=== PATIENT | female | born 1960 | race Caucasian/White ===

== ENCOUNTER 2019-05-01 17:16 | Emergency (ER) | payer OTHER, BC, SELFPAY ==
[2019-05-01 17:28] VITALS: BP 140/84; PULSE 118; RESP 21; TEMP 37.4; O2SAT 98
--- NOTE | 2019-05-01 17:51 | ED.FEMALEGU ---
HPI - Female Genitourinary General Chief complaint: Urogenital-Female Stated complaint: pos bladder infection Time Seen by Provider: 05/01/19 17:51 Source: patient Mode of arrival: ambulatory Limitations: no limitations History of Present Illness HPI Narrative: Shana Jean Baptiste is a 58 yo female with a PMH of HTN with abd pain and possible urinary hesitancy x 2 days. Patient states she is very stressed out and his father just mother is dying of cancer, [id number] and son live with them but son is very ill with dextrorotation of heart and medical study reticulitis. She has a high stress job at a [employer]; no longer has a primary care doc as his nurse practitioner just left. Related Data Home Medications Medication Instructions Recorded Confirmed estradiol 0.5 mg PO DAILY 05/01/19 05/01/19 metoprolol succinate 100 mg PO DAILY 05/01/19 05/01/19 Allergies Allergy/AdvReac Type Severity Reaction Status Date / Time levofloxacin Allergy Unknown Itching Verified 05/01/19 17:36 Review of Systems Review of Systems: Narrative: CONSTITUTIONAL: Denies fever, chills, sweats. EYES: Denies visual changes, redness, discharge. ENT: Denies rhinorrhea, congestion, sore throat, otalgia. CARDIOVASCULAR: Denies chest pain, palpitations, edema. RESPIRATORY: Denies dyspnea, wheezing, cough GASTROINTESTINAL: has abdominal pain, no nausea, vomiting, no diarrhea. GENITOURINARY: Denies dysuria, hematuria, abnormal discharge SKIN: Denies rash or itching. NEUROLOGIC: Denies numbness, or focal weakness. PSYCHIATRIC: Denies anxiety or depression. [facility] Family History Family History Father Hypertension Family history of malignant neoplasm of kidney Mother Hypertension Other Cerebrovascular accident Diabetes mellitus Family history of allergic disorder Family history of cardiovascular disease Family history of coronary artery disease Family history of kidney disease Family history of malignant neoplasm Social History Social History Smoking status: Former smoker Second hand tobacco smoke exposure: Yes Smoking end date: 03/09/16 Alcohol intake: never Comments At time of signature, I agree with nursing past medical, surgical, social and family history. There is no relevant family history pertinent to the presenting complaint. Exam Narrative: Exam Narrative: GENERAL: This is a well-nourished, well-developed patient, in mild distress. HEAD: normocephalic, atraumatic. EYES: PERRL. Sclera clear/white. Vision is grossly intact. EARS: External ears normal, Hearing grossly intact. NOSE: External nose normal with no obvious nasal discharge, nares without redness, no rhinorrhea. THROAT: Mucous membranes moist, NECK: Neck supple, non-tender CARDIOVASCULAR: Regular rate and rhythm without murmurs, gallops, or rubs. RESPIRATORY: Clear to auscultation. Breath sounds equal bilaterally. No wheezes, rales, or rhonchi. GASTROINTESTINAL: Abdomen soft, non-tender, nondistended. Bowel sounds are active. No hepato-splenomegaly, no tenderness on exam SKIN: warm, intact with no suspicious lesions or rash, good texture and turgor. NEURO: awake, alert, and oriented to person, place and time. There were no obvious focal neurologic abnormalities. Steady gait EXTREMITIES: Normal range of motion. No edema. BACK: Nontender without deformity or crepitance. No flank tenderness. Course Course Emergency Course: UA dip negative sent for culture During discussion patient states that she has been constipated and has a history of IBS with constipation . discussed handling stress starting on Colace and hydration. Patient has abdominal pain going forward, pain worsens, or fever worsens, she needs to get blood work done or go to the emergency room Vital Signs Vital signs: Vital Signs Temperature 99.3 F 05/01/19 17:28 Pulse Rat
== END 2019-05-01 18:26 | disposition home or self-care (01) ==
PROVIDERS: Emergency Provider Nurse Practitioner
DX: F43.9 Reaction to severe stress, unspecified (principal); K58.1 Irritable bowel syndrome with constipation; Z87.891 Personal history of nicotine dependence; I10 Essential (primary) hypertension
CPT/HCPCS: 81003; 87086; 99213; G0463

== ENCOUNTER 2019-06-03 21:31 | Emergency (ER) | payer OTHER, BC, SELFPAY ==
--- NOTE | ~2019-06-03 | CT_ITS ---
EXAMINATION: CT abdomen pelvis wo con DATE: 06/03/2019 23:28 INDICATION: Right flank pain. TECHNIQUE: Computed tomography (CT) of the abdomen and pelvis was performed without intravenous contr ast. Automated exposure control and iterative reconstruction technique were employed. The dose-length product was 330.55 mGy-cm. COMPARISON: None. FINDINGS: The visualized portions of the lung bases demonstrate minimal atelectasis. No pleural effus ion. The heart size is normal. No pericardial effusion. The liver, gallbladder, spleen, pancreas, and adrenal glands are normal. There is mild right hydronephrosis and hydroureter. There is a 14 mm cyst in left kidney. There is a 4 mm stone in left kidney. There are no dilated loops of bowel. The appen dusty is normal. There are no pathologically enlarged lymph nodes. There is no free intraperitoneal flu id. There is moderate thoracic spondylosis and mild lumbar spondylosis. IMPRESSION: 1. Mild right hydronephrosis and hydroureter. 2. 4 mm nonobstructing left kidney stone. Reviewed, dictated and finalized at location A.
[2019-06-03 22:03] VITALS: BP 143/88; PULSE 92; RESP 16; TEMP 36.7; O2SAT 99
--- NOTE | 2019-06-03 23:12 | ED.FEMALEGU ---
HPI - Female Genitourinary General Chief complaint: Urogenital-Female Stated complaint: R flank pain Time Seen by Provider: 06/03/19 22:53 Source: patient Mode of arrival: ambulatory Limitations: no limitations History of Present Illness HPI Narrative: Patient is a 58-year-old female who presents to the emergency department with complaint of right flank pain. Patient reports onset of symptoms a few weeks ago. Patient states she was seen at urgent care and had urine checked. Patient states she was told she did not have an infection but could potentially have a kidney stone. Patient symptoms subsided and she had been doing very well. Patient had recurrence of symptoms at approximately 5 PM this evening while she was working from home. Patient to to acetaminophen tablets when the pain started. Pain was located in the right flank with radiation into the groin. Patient had some nausea and diaphoresis associated with her symptoms. MD elicited complaint: flank pain Pertinent past history: other (Kidney stones) Location of symptoms: flank (Right) Female Urogenital Radiation: Suprapubic Severity scale (1-10): 10 Consistency: improved (Has started to improve since arriving in the ED) Treatment prior to arrival: OTC urinary analgesics Related Data Home Medications Medication Instructions Recorded Confirmed estradiol 0.5 mg PO DAILY 05/01/19 05/01/19 metoprolol succinate 100 mg PO DAILY 05/01/19 05/01/19 Allergies Allergy/AdvReac Type Severity Reaction Status Date / Time levofloxacin Allergy Unknown Itching Verified 05/01/19 17:36 Review of Systems Review of Systems: All systems reviewed & are unremarkable except as noted in HPI and below Constitutional: Constitutional: Denies fever(s) Respiratory: Respiratory: Denies cough Gastrointestinal: Gastrointestinal: Reports abdominal pain and Reports nausea Genitourinary: Genitourinary: Reports flank pain PMFSH Past Medical History Medical History (Updated 06/04/19 @ 00:22 by Nancy Sosa MD) Fibromyalgia HTN (hypertension) IBS (irritable bowel syndrome) Kidney stones Surgical History Surgical History (Updated 06/03/19 @ 23:25 by Nancy Sosa MD) History of section History of colonoscopy History of cystoscopy History of lithotripsy History of total hysterectomy with bilateral salpingo-oophorectomy (BSO) History of ureter stent Social History Social History Smoking status: Former smoker Second hand tobacco smoke exposure: Yes Smoking end date: 03/09/16 Alcohol intake: never Exam Const: General: cooperative, no acute distress and alert Nutritional Appearance: well nourished Orientation/consciousness: patient oriented x3 Limitations: no limitations HENMT: Mouth: Yes lip normal and Yes moist mucous membranes Resp: Effort & Inspection: normal respiratory effort Auscultation: clear to auscultation bilaterally Cardio: Rate: regular rate Rhythm: regular rhythm GI: GI Palp: Yes Soft to palpation and No Tenderness to palpation present (GI) Auscultation: normal bowel sounds Skin: General skin exam: normal color Neuro: General: patient oriented x3 Cognition (Neuro): normal cognition Speech: normal speech Extrem: General: normal to inspection, full ROM and no clubbing, cyanosis or edema Psych: Mental Status: mental status grossly normal Affect: normal affect Attitude: cooperative Course Course Emergency Course: Patient with improvement in her pain prior to my evaluation. Patient noted by nurse to be in severe pain and very uncomfortable in appearance on arrival, but patient greatly improved and very comfortable during my evaluation. CT scan consistent with what appears to be a passed right ureteral stone. Patient states after going to the bathroom a second time here in the emergency department and urinating she had significant improvement in her pain. Suspect patient
[2019-06-03] MEDS: ONDANSETRON INJ 4 MG/2 ML VIAL IV PUSH (23:13)
[2019-06-03] MEDS: KETOROLAC 30 MG/ML VIAL (*BKC) IV PUSH (23:13)
[2019-06-03 23:43] LABS: Basophils Absolute Auto 0.1 K/mm3 (0.0-0.1); Basophils Percent Auto 0.5 % (0.2-1.2); Eosinophils Percent Auto 0.2 % (0-4.4); Hematocrit 38.6 % (37.0-47.0); Immature Granulocyte Absolute 0.04 K/mm3 (0.00-0.031); Immature Granulocyte Percent A 0.3 % (0-0.5); Lymphocytes Absolute Auto 2.15 K/mm3 (0.9-3.2); Lymphocytes Percent Auto 16.8 % (18.3-44.2); Mean Corpuscular HGB Conc 33.7 g/dl (32-36); Mean Corpuscular Hemoglobin 28.1 pg (26-34); Mean Corpuscular Volume 83.5 fl (80-100); Mean Platelet Volume 9.6 fl (7.4-10.4); Monocytes Absolute Auto 0.7 K/mm3 (0.1-0.6); Monocytes Percent Auto 5.1 % (2.6-8.5); Neutrophils Absolute Auto 9.9 K/mm3 (1.3-6.7); Neutrophils Percent Auto 77.1 % (45.5-73.1); Platelet Count Result 477 k/mm3 (150-375); Red Blood Count 4.62 M/mm3 (4.2-5.4); Red Cell Distribution Width 12.8 % (11.5-14.5); White Blood Count 12.8 K/mm3 (4.5-10.0)
[2019-06-03 23:44] VITALS: BP 144/87; PULSE 90; RESP 15; O2SAT 100
[2019-06-03 23:47] LABS: Blood Urea Nitrogen 16 mg/dL (7-17); Calcium 9.6 mg/dL (8.4-10.2); Carbon Dioxide 18 mmol/L (22-30); Chloride 107 mmol/L (98-107); Estimated Glomerular Filt Rate > 60; Glucose 122 mg/dL (65-105); Potassium 4.1 mmol/L (3.4-5.0); Sodium 138 mmol/L (137-145)
[2019-06-03 23:48] LABS: Add Urine Microscopic? YES; Appearance Urine Cloudy (Clear); Bilirubin Urine Negative (Negative); Blood Urine 1+ (Negative); Glucose Urine UA Negative (Negative); Ketones Urine Negative (Negative); Leukocyte Esterase Ur Negative LEU/UL (Negative); Nitrate Urine Negative (Negative); Protein Urine Negative (Negative); Specific Grav Ur 1.017 (1.001-1.035); Urobilinogen Urine Negative mg/dL (<2.0)
[2019-06-03 23:57] LABS: Color Urine Amber (Yellow)
[2019-06-04 00:57] VITALS: BP 135/76; PULSE 85; RESP 14; O2SAT 98
== END 2019-06-04 00:59 | disposition home or self-care (01) ==
PROVIDERS: Emergency Provider Emergency Medicine
DX: N23 Unspecified renal colic (principal); M79.7 Fibromyalgia; I10 Essential (primary) hypertension; K58.9 Irritable bowel syndrome, unspecified; Z87.442 Personal history of urinary calculi; Z87.891 Personal history of nicotine dependence; N20.0 Calculus of kidney; N13.30 Unspecified hydronephrosis
CPT/HCPCS: 36415; 74176; 80048; 81001; 81025; 85025; 96374; 96375; 99284; J1885; J2405

== ENCOUNTER 2020-01-04 16:17 | Outpatient (CLI) | payer OTHER, BC, SELFPAY ==
--- NOTE | ~2020-01-04 | MM_ITS ---
EXAMINATION: MM screening [facility] BI w nickolas HISTORY: Screening mammogram TECHNIQUE: Craniocaudal and mediolateral oblique 3-D tomosynthesis images were obtained and synthetic 2-D images were generated. CAD analysis was submitted and interpreted. COMPARISON: 05/15/2018, 09/07/2015, 10/14/2008 BREAST PARENCHYMAL COMPOSITION: There are scattered areas of fibroglandular density. FINDINGS: There is no evidence of suspicious mass, calcification, or architectural distortion to sugg est malignancy in either breast. There has been no suspicious interval change. IMPRESSION: 1. No mammographic evidence of malignancy. 2. Recommend routine screening mammography in one year. BI-RADS Category 1: Negative Reviewed, dictated and finalized at location A.
== END 2020-01-04 16:18 | disposition home or self-care (01) ==
LOC: ANHIMG 16:21
PROVIDERS: PCP Family Medicine; Visit Provider Obstetrics & Gynecology
DX: Z12.31 Encounter for screening mammogram for malignant neoplasm of breast (principal)
CPT/HCPCS: 77063; 77067

== ENCOUNTER 2020-09-01 11:12 | Outpatient (CLI) | payer OTHER, BC, SELFPAY ==
[2020-09-01 11:40] LABS: Basophils Percent Auto 0.6 % (0.2-1.2); Eosinophils Absolute Auto 0.1 K/mm3 (0-0.3); Eosinophils Percent Auto 1.9 % (0-4.4); Hematocrit 43.5 % (37.0-47.0); Hemoglobin 14.2 g/dL (12.0-15.0); Immature Granulocyte Absolute 0.01 K/mm3 (0.00-0.031); Immature Granulocyte Percent A 0.1 % (0-0.5); Lymphocytes Absolute Auto 3.32 K/mm3 (0.9-3.2); Lymphocytes Percent Auto 48.7 % (18.3-44.2); Mean Corpuscular HGB Conc 32.6 g/dl (32-36); Mean Corpuscular Hemoglobin 28.2 pg (26-34); Mean Corpuscular Volume 86.3 fl (80-100); Mean Platelet Volume 8.9 fl (7.4-10.4); Monocytes Absolute Auto 0.5 K/mm3 (0.1-0.6); Monocytes Percent Auto 6.7 % (2.6-8.5); Neutrophils Absolute Auto 2.9 K/mm3 (1.3-6.7); Platelet Count Result 425 k/mm3 (150-375); Red Blood Count 5.04 M/mm3 (4.2-5.4); Red Cell Distribution Width 13.2 % (11.5-14.5); White Blood Count 6.8 K/mm3 (4.5-10.0)
[2020-09-01 11:55] LABS: Alanine Aminotransferase 53 U/L (4-35); Albumin Level 4.5 g/dL (3.5-5.1); Alkaline Phosphatase 75 U/L (38-126); Anion Gap 9 mmol/L (8-16); Aspartate Amino Transferase 42 U/L (14-36); Bilirubin,Total 0.4 mg/dL (0.2-1.3); Blood Urea Nitrogen 13 mg/dL (7-17); Calcium 9.4 mg/dL (8.4-10.2); Carbon Dioxide 27 mmol/L (22-30); Chloride 106 mmol/L (98-107); Cholesterol 188 mg/dL (0-200); Estimated Glomerular Filt Rate > 60; Glucose 93 mg/dL (65-105); HDL Direct 69 mg/dL; Potassium 4.1 mmol/L (3.4-5.0); Sodium 142 mmol/L (137-145); Triglycerides 128 mg/dL (<150)
[2020-09-01 12:05] LABS: Hemoglobin A1C 5.8 % (<5.7)
[2020-09-01 12:06] LABS: LDL Cholesterol Direct 75 mg/dL
[2020-09-01 12:25] LABS: Microalbumin Urine Random 17.1 mg/L (0-16.7); Total Triiodothyronine (T3) 1.52 NG/ML (0.97-1.69)
[2020-09-01 12:27] LABS: Creatinine Urine 323.9 mg/dL; MALB Creatinine Ratio 5.3 mg/g (0-30)
[2020-09-01 12:39] LABS: Free T4 Free Thyroxine 1.04 ng/mL (0.78-2.19); Vitamin D 25 Hydroxy 26.3 ng/mL
== END 2020-09-01 11:13 | disposition home or self-care (01) ==
PROVIDERS: PCP Family Medicine; Visit Provider Nurse Practitioner Family
DX: R00.2 Palpitations (principal); R55 Syncope and collapse; I10 Essential (primary) hypertension; E55.9 Vitamin D deficiency, unspecified; R53.83 Other fatigue; R73.01 Impaired fasting glucose; Z13.220 Encounter for screening for lipoid disorders; R00.0 Tachycardia, unspecified
CPT/HCPCS: 36415; 80053; 80061; 82043; 82306; 83036; 84439; 84443; 84480; 85025

== ENCOUNTER 2020-11-20 21:16 | Emergency (ER) | payer OTHER, BC, SELFPAY ==
--- NOTE | ~2020-11-20 | XR_ITS ---
EXAMINATION: XR abdomen/kub 1V INDICATION: Left ureteral stone TECHNIQUE: Supine views of the abdomen were obtained on 2 radiographs. COMPARISON: CT, 11/20/2020 FINDINGS: Contrast from CT examination opacifies the urinary tract. The known left ureteral stone is not definitely identified. There is mild left hydronephrosis. There are phleboliths of the pelvis. Th e bowel gas pattern is normal. IMPRESSION: 1. Mild left hydronephrosis. Known right ureteral stone not definitely seen. Reviewed, dictated and finalized at location A.
--- NOTE | ~2020-11-20 | CT_ITS ---
EXAMINATION: CT abdomen pelvis w con DATE: 11/20/2020 23:25 INDICATION: Abdominal pain, bloating, gas. Back pain. Hematuria. History of kidney stones. TECHNIQUE: Computed tomography (CT) of the abdomen and pelvis was performed with 100 cc Omnipaque 350 intravenous contrast. Automated exposure control and iterative reconstruction technique were employe d. Exam dose: 617.11 mGy-cm total exam DLP. COMPARISON: 06/03/2019 CT abdomen pelvis noncontrast examination FINDINGS: The lung bases are clear. Normal heart size. No pericardial or pleural effusion. Approximately 13.505 4.5 mm left hepatic cysts. The liver, gallbladder, bile ducts, spleen, pancreas, pancreatic duct, and adrenal glands are otherwise unremarkable. 5 mm probable lower pole right renal cyst. 2.4 cm lower pole left renal cyst. 6.5 mm probable lower pole left renal cyst. There is mild left hydroureteronephrosis secondary to a 3.7 x 4.7 mm mm calculus of the left ureter a t the S1 level. No other urinary tract calculus is noted. The urinary bladder is unremarkable. Status post hysterectomy. Normal caliber of the abdominal aorta. No intraperitoneal or retroperitoneal or pelvic mass lesion or adenopathy or ascites. No evidence of appendicitis. There is diverticulosis of the colon; no CT evidence of diverticulitis. No bowel obstruction, bowel wall thickening, pneumatosis or intraperitoneal free air is detected. IMPRESSION: 3.7 x 4.7 mm obstructing left ureteral calculus at the S1 level, with mild proximal left hydroureteronephrosis Bilateral renal cysts Left hepatic cysts Diverticulosis of the colon; no CT evidence of diverticulitis Status post hysterectomy Reviewed, dictated and finalized at Location A. Reviewed, dictated and finalized at location A. IMPRESSION: 3.7 x 4.7 mm obstructing left ureteral calculus at the S1 level, w ith mild proximal left hydroureteronephrosis Bilateral renal cysts Left hepatic cysts Diverticulosis of the colon; no CT evidence of diverticulitis Status post hysterectomy
[2020-11-20 21:30] VITALS: BP 148/94; PULSE 114; RESP 18; TEMP 36.4; O2SAT 99
[2020-11-20 21:53] LABS: Basophils Absolute Auto 0.1 K/mm3 (0.0-0.1); Basophils Percent Auto 0.6 % (0.2-1.2); Eosinophils Absolute Auto 0.1 K/mm3 (0-0.3); Eosinophils Percent Auto 1.3 % (0-4.4); Hematocrit 42.8 % (37.0-47.0); Hemoglobin 14.3 g/dL (12.0-15.0); Immature Granulocyte Absolute 0.02 K/mm3 (0.00-0.031); Immature Granulocyte Percent A 0.2 % (0-0.5); Lymphocytes Absolute Auto 4.17 K/mm3 (0.9-3.2); Lymphocytes Percent Auto 41.8 % (18.3-44.2); Mean Corpuscular HGB Conc 33.4 g/dl (32-36); Mean Corpuscular Hemoglobin 28.6 pg (26-34); Mean Corpuscular Volume 85.6 fl (80-100); Mean Platelet Volume 8.9 fl (7.4-10.4); Monocytes Absolute Auto 0.8 K/mm3 (0.1-0.6); Monocytes Percent Auto 7.5 % (2.6-8.5); Neutrophils Absolute Auto 4.8 K/mm3 (1.3-6.7); Neutrophils Percent Auto 48.6 % (45.5-73.1); Platelet Count Result 449 k/mm3 (150-375); Red Cell Distribution Width 12.9 % (11.5-14.5)
[2020-11-20 22:04] LABS: Alanine Aminotransferase 38 U/L (4-35); Albumin Level 4.6 g/dL (3.5-5.1); Alkaline Phosphatase 92 U/L (38-126); Anion Gap 12 mmol/L (8-16); Aspartate Amino Transferase 29 U/L (14-36); Bilirubin,Total 0.3 mg/dL (0.2-1.3); Blood Urea Nitrogen 10 mg/dL (7-17); Calcium 9.2 mg/dL (8.4-10.2); Carbon Dioxide 22 mmol/L (22-30); Chloride 106 mmol/L (98-107); Estimated CRCL calculation 76 ml/min; Estimated Glomerular Filt Rate > 60; Glucose 116 mg/dL (65-110); Lipase 136 U/L (23-300); Potassium 3.4 mmol/L (3.4-5.0); Sodium 140 mmol/L (137-145)
[2020-11-20 22:05] LABS: Add Urine Microscopic? YES; Appearance Urine Cloudy (Clear); Bacteria Urine Trace /hpf; Bilirubin Urine Negative (Negative); Blood Urine 3+ (Negative); Color Urine Red (Yellow); Glucose Urine UA 1+ mg/dL (Negative); Ketones Urine Negative (Negative); Leukocyte Esterase Ur Negative LEU/UL (Negative); Mucus Urine Moderate /lpf; Nitrate Urine Negative (Negative); Protein Urine 2+ mg/dL (Negative); RBC Urine >75 /hpf (0-2); Specific Grav Ur 1.018 (1.001-1.035); Squamous Epithelial Cell Urine Many /hpf (Few); Urobilinogen Urine Negative mg/dL (<2.0)
--- NOTE | 2020-11-20 23:01 | ED.GENADULT ---
HPI - General Adult General Chief complaint: Abdominal Pain Stated complaint: hematuria, bodyaches Time Seen by Provider: 11/20/20 22:47 Source: patient History of Present Illness HPI narrative: Patient is a 59 y/o female complaining of bilateral back pain starting 5 days ago. She describes her pain as aching and rates it as 9/10. She took Tylenol, which helps with her pain slightly. Her pain radiates to right lower abdomen. She has no vomiting or diarrhea. She has some blood in urine. Related Data Home Medications Medication Instructions Recorded Confirmed estradiol 0.5 mg PO DAILY 05/01/19 05/01/19 metoprolol succinate 100 mg PO DAILY 05/01/19 05/01/19 sennosides-docusate sodium PO 11/20/20 [Stimulant Laxative Plus] Allergies Allergy/AdvReac Type Severity Reaction Status Date / Time levofloxacin Allergy Unknown Itching Verified 11/20/20 22:52 Review of Systems Constitutional: Constitutional: Denies chills, Denies fever(s), Denies headache(s) and Denies weakness Eyes: Eyes: Denies blurry vision ENT: Denies headache(s) and Denies neck pain Cardiovascular: Cardiovascular: Denies chest pain and Denies dyspnea Respiratory: Respiratory: Denies cough and Denies dyspnea Gastrointestinal: Gastrointestinal: Reports abdominal pain, Denies diarrhea, Denies nausea and Denies vomiting Genitourinary: Genitourinary: Reports hematuria and Denies dysuria Musculoskeletal: Musculoskeletal: Reports back pain and Denies neck pain Neurologic: Denies headache(s) and Denies weakness [facility] Past Medical History Medical History Fibromyalgia HTN (hypertension) IBS (irritable bowel syndrome) Kidney stones Surgical History Surgical History History of section History of colonoscopy History of cystoscopy History of lithotripsy History of total hysterectomy with bilateral salpingo-oophorectomy (BSO) History of ureter stent Family History Family History Father Hypertension Family history of malignant neoplasm of kidney Mother Hypertension Other Cerebrovascular accident Diabetes mellitus Family history of allergic disorder Family history of cardiovascular disease Family history of coronary artery disease Family history of kidney disease Family history of malignant neoplasm Social History Social History Smoking status: Former smoker Second hand tobacco smoke exposure: Yes Smoking end date: 03/09/16 Alcohol intake: never Exam Const: General: no acute distress and well developed Orientation/consciousness: oriented to person, oriented to place, oriented to time and patient oriented x3 HENMT: Head: normocephalic Ears: external ears normal General nose exam: Normal external nose present Eyes: General: appearance normal, both eyes and all related structures Conjunctivae: conjunctivae normal Neck: Neck: normal visual inspection and full ROM Chest: Chest palpation & inspection: normal inspection of the chest and no tenderness Resp: Effort & Inspection: normal respiratory effort Auscultation: clear to auscultation bilaterally Cardio: Rate: regular rate Rhythm: regular rhythm GI: GI Palp: No abdominal tenderness and Yes Soft to palpation Skin: General skin exam: normal color and turgor normal Neuro: General: oriented to person, oriented to place, oriented to time and patient oriented x3 Cognition (Neuro): normal cognition Extrem: General: normal to inspection, full ROM and no pedal edema Psych: Appearance: grossly normal Mental Status: mental status grossly normal Affect: normal affect Course Reevaluation(s) Reevaluation #1: Rechecked. Patient feels better with no significant pain. She feels comfortable with discharge. Date: 11/21/20 Time: 00:40 Vital Signs Vital signs
[2020-11-20] MEDS: SODIUM CHLORIDE 0.9% IV 1,000 ML 999 ML IV CONT (23:13)
[2020-11-20] MEDS: KETOROLAC 30 MG/ML VIAL (*BKC) IV PUSH (23:14)
[2020-11-20 23:15] VITALS: BP 172/97; PULSE 88; RESP 18; O2SAT 98
[2020-11-21] MEDS: METOCLOPRAMIDE HCL 10 MG TABLET PO (00:05)
[2020-11-21] MEDS: MORPHINE SULFATE (*CRX) 4 MG/ML INJ IV PUSH (01:08)
[2020-11-21 01:25] VITALS: BP 147/88; PULSE 90; RESP 14; O2SAT 94
== END 2020-11-21 01:23 | disposition home or self-care (01) ==
PROVIDERS: Internal Medicine Interventional Cardiology; Emergency Provider Emergency Medicine; PCP Family Medicine
DX: N20.1 Calculus of ureter (principal); M79.7 Fibromyalgia; I10 Essential (primary) hypertension; Z87.19 Personal history of other diseases of the digestive system; Z87.442 Personal history of urinary calculi; Z87.891 Personal history of nicotine dependence
CPT/HCPCS: 36415; 74018; 74177; 80053; 81001; 81025; 83690; 85025; 87086; 96361; 96374; 99285; A9270; J1885; J2270; J7030; Q9967

== ENCOUNTER 2021-08-03 07:15 | Outpatient (CLI) | payer OTHER, BC, SELFPAY ==
[2021-08-03 08:18] LABS: Basophils Percent Auto 0.6 % (0.2-1.2); Eosinophils Absolute Auto 0.1 K/mm3 (0-0.3); Eosinophils Percent Auto 2.2 % (0-4.4); Hematocrit 43.1 % (37.0-47.0); Immature Granulocyte Absolute 0.01 K/mm3 (0.00-0.031); Immature Granulocyte Percent A 0.2 % (0-0.5); Lymphocytes Absolute Auto 2.93 K/mm3 (0.9-3.2); Lymphocytes Percent Auto 45.9 % (18.3-44.2); Mean Corpuscular HGB Conc 32.5 g/dl (32-36); Mean Corpuscular Hemoglobin 28.3 pg (26-34); Mean Corpuscular Volume 87.1 fl (80-100); Mean Platelet Volume 8.8 fl (7.4-10.4); Monocytes Absolute Auto 0.5 K/mm3 (0.1-0.6); Neutrophils Absolute Auto 2.8 K/mm3 (1.3-6.7); Neutrophils Percent Auto 43.1 % (45.5-73.1); Platelet Count Result 455 k/mm3 (150-375); Red Blood Count 4.95 M/mm3 (4.2-5.4); Red Cell Distribution Width 12.9 % (11.5-14.5); White Blood Count 6.4 K/mm3 (4.5-10.0)
[2021-08-03 08:26] LABS: Alanine Aminotransferase 37 U/L (6-35); Albumin Level 4.5 g/dL (3.5-5.1); Alkaline Phosphatase 76 U/L (38-126); Anion Gap 4 mmol/L (8-16); Aspartate Amino Transferase 32 U/L (14-36); Bilirubin,Total 0.4 mg/dL (0.2-1.3); Blood Urea Nitrogen 9 mg/dL (7-17); Calcium 8.8 mg/dL (8.4-10.2); Carbon Dioxide 30 mmol/L (22-30); Chloride 106 mmol/L (98-107); Cholesterol 181 mg/dL (0-200); Estimated Glomerular Filt Rate > 60; Glucose 107 mg/dL (65-110); HDL Direct 67 mg/dL; Potassium 4.2 mmol/L (3.4-5.0); Sodium 140 mmol/L (137-145); Triglycerides 95 mg/dL (<150)
[2021-08-03 08:37] LABS: LDL Cholesterol Direct 75 mg/dL
[2021-08-03 08:39] LABS: Hemoglobin A1C 5.6 % (<5.7)
[2021-08-03 08:58] LABS: Total Triiodothyronine (T3) 1.54 NG/ML (0.97-1.69)
[2021-08-03 09:16] LABS: Vitamin D 25 Hydroxy 26.5 ng/mL
== END 2021-08-03 07:16 | disposition home or self-care (01) ==
LOC: ANHLAB 07:18
PROVIDERS: PCP Family Medicine; Visit Provider Nurse Practitioner Adult Health
DX: I10 Essential (primary) hypertension (principal); R73.03 Prediabetes
CPT/HCPCS: 36415; 80053; 80061; 82306; 83036; 84439; 84443; 84480; 85025

== ENCOUNTER 2023-05-09 15:43 | Emergency (ER) | payer BC, SELFPAY ==
[2023-05-09 16:06] VITALS: BP 119/71; PULSE 104; RESP 18; TEMP 36.6; O2SAT 98
--- NOTE | 2023-05-09 16:15 | ED.SKABFB ---
HPI - Skin/Abscess/Foreign Bdy General Chief complaint: Skin/Abscess/Foreign Body Stated complaint: rash on hands Source: patient Mode of arrival: ambulatory Limitations: no limitations History of Present Illness HPI narrative: Shana is a 62-year-old female patient presenting to the clinic today with complaints of a rash on bilateral hands. She reports she was seen for this a couple weeks ago and given prescription for oral prednisone and that improved her symptoms however the rash is now come back. Denies any known triggers/environmental changes. Has been trying to use different soaps and shampoos without relief. Related Data Home Medications Medication Instructions Recorded Confirmed amlodipine 5 mg tablet 5 mg PO DAILY 10/10/21 05/09/23 Allergies Allergy/AdvReac Type Severity Reaction Status Date / Time levofloxacin Allergy Unknown Itching Verified 05/09/23 16:12 Review of Systems Review of Systems: Pertinent positives per HPI. Patient denies any fever, chills, headache, visual changes, dizziness, cough, runny nose, sore throat, shortness of breath, chest pain, palpitations, nausea, vomiting, diarrhea, constipation, abdominal pain, or any urinary issues. [facility] Past Medical History Medical History Anxiety Arthritis Fibromyalgia HTN (hypertension) IBS (irritable bowel syndrome) Kidney stones Screening mammogram, encounter for Surgical History Surgical History History of breast biopsy (~2015) axillary mass biopsy--benign History of carpal tunnel surgery of right wrist History of section x2, primary done b/c distress History of colonoscopy History of colposcopy with cervical biopsy (~1991) cervical dysplasia History of cystoscopy History of hand surgery (~02/24/89) trigger finger release History of lithotripsy History of total abdominal hysterectomy and bilateral salpingo-oophorectomy (11/30/00) fibroids History of ureter stent Family History Family History Father Hypertension Family history of malignant neoplasm of kidney Mother Hypertension Other Diabetes mellitus paternal uncle Acute myocardial infarction paternal uncle Grandparent Cerebrovascular accident maternal grandmother Son Scimitar syndrome Heart disease Depression Sibling CLL (chronic lymphocytic leukemia) Other Family history of allergic disorder Family history of cardiovascular disease Family history of coronary artery disease Family history of kidney disease Family history of malignant neoplasm Social History Social History Smoking status: Former smoker Second hand tobacco smoke exposure: Yes Smoking end date: 03/09/16 Alcohol intake: never Substance use: current Substance use type: marijuana Other substance usage details: edibles for stress Lack of Transportation: No Lack of Food: Never True Current Housing: I Have Housing Concerned About Future Housing: No Difficulty Paying Gas/Electric Bills: No Difficulty Paying for Meds: No Currently Unemployed: No Education: Bachelor's Degree Difficulty w/ Childcare or Family Care: No Living arrangements: other Additional living arrangements comments: Occupation/Education: retired Gender identity (if verbalized by the patient): Female Sexual Orientation (if Verbalized by the Patient): Straight or Heterosexual Comments At the time of my signature, I reviewed and agree with the nursing past medical, surgical, social, and family history. There is no relevant family history pertinent to the patient complaint. Exam Narrative: General: Well-developed, well nourished, in no apparent distress Head: Normocephalic, atraumatic. Cardio: Regular rate a
== END 2023-05-09 16:38 | disposition home or self-care (01) ==
PROVIDERS: Emergency Provider Nurse Practitioner Family; PCP Family Medicine
DX: L30.1 Dyshidrosis [pompholyx] (principal); Z87.891 Personal history of nicotine dependence; F12.90 Cannabis use, unspecified, uncomplicated; M19.90 Unspecified osteoarthritis, unspecified site; M79.7 Fibromyalgia; I10 Essential (primary) hypertension
CPT/HCPCS: 99213; G0463

== ENCOUNTER 2023-07-16 17:54 | Emergency (ER) | payer BC, SELFPAY ==
[2023-07-16 18:09] VITALS: BP 137/85; PULSE 97; RESP 18; TEMP 36.6; O2SAT 98
--- NOTE | 2023-07-16 18:45 | ED.SKABFB ---
HPI - Skin/Abscess/Foreign Bdy General Chief complaint: Skin/Abscess/Foreign Body Stated complaint: Skin Irritation Time Seen by Provider: 07/16/23 18:25 Source: patient, RN notes reviewed and old records reviewed Mode of arrival: ambulatory Limitations: no limitations History of Present Illness HPI narrative: 62 year old female who presents to [facility] care with complaints of skin irritation to the right middle finger specifically mainly to side of finger and jones aspect with pain and has noted some cracking of skin. Patient reports that she was seen in the clinic in past and received oral steroids and triamcinolone cream but has ran out of cream. States she has been applying some lotions to skin area but has not been effective to promote resolution. MD complaint: rash (irritation and cracking) Onset (ago): week(s) (1week increased symptoms) Location: R hand (middle finger) Severity scale (1-10): 5 Treatments prior to arrival: other (steroid cream) Related Data Home Medications Medication Instructions Recorded Confirmed amlodipine 5 mg tablet 5 mg PO DAILY 10/10/21 07/16/23 Allergies Allergy/AdvReac Type Severity Reaction Status Date / Time levofloxacin Allergy Unknown Itching Verified 07/16/23 18:31 Review of Systems Review of Systems: CONSTITUTIONAL: Denies fever, chills, or sweats. CARDIOVASCULAR: Denies chest pain, palpitations, or edema. RESPIRATORY: Denies cough or dyspnea. SKIN: Reports red irritated skin with pain to right middle finger MUSCULOSKELETAL: Denies joint pain or myalgia. NEUROLOGIC: Denies headache, numbness, or weakness. All systems reviewed & are unremarkable except as noted in HPI and below PMFSH Past Medical History Medical History Anxiety Arthritis Fibromyalgia HTN (hypertension) IBS (irritable bowel syndrome) Kidney stones Screening mammogram, encounter for Surgical History Surgical History History of breast biopsy (~2015) axillary mass biopsy--benign History of carpal tunnel surgery of right wrist History of section x2, primary done b/c distress History of colonoscopy History of colposcopy with cervical biopsy (~1991) cervical dysplasia History of cystoscopy History of hand surgery (~02/24/89) trigger finger release History of lithotripsy History of total abdominal hysterectomy and bilateral salpingo-oophorectomy (11/30/00) fibroids History of ureter stent Family History Family History Father Hypertension Family history of malignant neoplasm of kidney Mother Hypertension Other Diabetes mellitus paternal uncle Acute myocardial infarction paternal uncle Grandparent Cerebrovascular accident maternal grandmother Son Scimitar syndrome Heart disease Depression Sibling CLL (chronic lymphocytic leukemia) Other Family history of allergic disorder Family history of cardiovascular disease Family history of coronary artery disease Family history of kidney disease Family history of malignant neoplasm Social History Social History Smoking status: Former smoker Second hand tobacco smoke exposure: Yes Smoking end date: 03/09/16 Alcohol intake: never Substance use: current Substance use type: marijuana Other substance usage details: edibles for stress Lack of Transportation: No Lack of Food: Never True Current Housing: I Have Housing Concerned About Future Housing: No Difficulty Paying Gas/Electric Bills: No Difficulty Paying for Meds: No Currently Unemployed: No Education: Bachelor's Degree Difficulty w/ Childcare or Family Care: No Living arrangements: other Additional living arrangements comments: Occupation/Education: retired Gender identity (if verb
== END 2023-07-16 19:07 | disposition home or self-care (01) ==
PROVIDERS: Emergency Provider Registered Nurse
DX: L30.1 Dyshidrosis [pompholyx] (principal); Z87.891 Personal history of nicotine dependence; F12.90 Cannabis use, unspecified, uncomplicated; M19.90 Unspecified osteoarthritis, unspecified site; M79.7 Fibromyalgia
CPT/HCPCS: 99213; G0463

== ENCOUNTER 2023-08-25 15:46 | Outpatient (CLI) | payer BC, SELFPAY ==
--- NOTE | ~2023-08-25 | MM_ITS ---
EXAMINATION: MM screening [facility] BI w [facility]olas HISTORY: Screening TECHNIQUE: Craniocaudal and mediolateral oblique 3-D tomosynthesis images were obtained and synthetic 2-D images were generated. CAD analysis was submitted and interpreted. COMPARISON: Comparison to multiple prior studies sequentially, with oldest reviewed study dated 03/2015. BREAST PARENCHYMAL COMPOSITION: Not dense: There are scattered areas of fibroglandular density. FINDINGS: There is no evidence of suspicious mass, calcification, or architectural distortion to sugg est malignancy in either breast. There has been no suspicious interval change. IMPRESSION: 1. No mammographic evidence of malignancy. 2. Recommend routine screening mammography in one year. BI-RADS Category 1: Negative Reviewed, dictated and finalized at location B.
== END 2023-08-25 15:47 | disposition home or self-care (01) ==
LOC: ANHIMG 15:48
PROVIDERS: Visit Provider Obstetrics & Gynecology
DX: Z12.31 Encounter for screening mammogram for malignant neoplasm of breast (principal)
CPT/HCPCS: 77063; 77067

== ENCOUNTER 2023-12-03 09:23 | Emergency (ER) | payer BC, SELFPAY ==
--- NOTE | 2023-12-03 09:26 | ED.URI ---
HPI - URI/Sore Throat General Chief Complaint: Upper Respiratory Infection Stated Complaint: upper respiratory infection Time Seen by Provider: 12/03/23 09:26 Source: patient Mode of arrival: ambulatory Limitations: no limitations History of Present Illness HPI Narrative: Shana is a 62-year-old female patient presenting to the clinic today with complaints of right ear pain, sinus pressure/pain, cough, and postnasal drip for over 2 weeks. She reports she is coughing up green and blowing out green nasal discharge. Denies any chest pain or shortness of breath. States that amoxicillin, Augmentin, and azithromycin do not help her much anymore for her sinus infections. MD elicited complaint: sore throat and nasal congestion Related Data Home Medications Medication Instructions Recorded Confirmed amlodipine 5 mg tablet 5 mg PO DAILY 10/10/21 12/03/23 Allergies Allergy/AdvReac Type Severity Reaction Status Date / Time levofloxacin Allergy Unknown Itching Verified 07/16/23 18:31 Review of Systems Review of Systems: Pertinent positives per HPI. Patient denies any fever, chills, rash, headache, visual changes, dizziness, shortness of breath, chest pain, palpitations, nausea, vomiting, diarrhea, constipation, abdominal pain, or any urinary issues. [facility] Past Medical History Medical History Anxiety Arthritis Fibromyalgia HTN (hypertension) IBS (irritable bowel syndrome) Kidney stones Screening mammogram, encounter for Surgical History Surgical History History of breast biopsy (~2015) axillary mass biopsy--benign History of carpal tunnel surgery of right wrist History of section x2, primary done b/c distress History of colonoscopy History of colposcopy with cervical biopsy (~1991) cervical dysplasia History of cystoscopy History of hand surgery (~02/24/89) trigger finger release History of lithotripsy History of total abdominal hysterectomy and bilateral salpingo-oophorectomy (11/30/00) fibroids History of ureter stent Family History Family History Father Hypertension Family history of malignant neoplasm of kidney Mother Hypertension Other Diabetes mellitus paternal uncle Acute myocardial infarction paternal uncle Grandparent Cerebrovascular accident maternal grandmother Son Scimitar syndrome Heart disease Depression Sibling CLL (chronic lymphocytic leukemia) Other Family history of allergic disorder Family history of cardiovascular disease Family history of coronary artery disease Family history of kidney disease Family history of malignant neoplasm Social History Social History Smoking status: Former smoker Second hand tobacco smoke exposure: Yes Smoking end date: 03/09/16 Alcohol intake: never Substance use: current Substance use type: marijuana Other substance usage details: edibles for stress Lack of Transportation: No Lack of Food: Never True Current Housing: I Have Housing Concerned About Future Housing: No Difficulty Paying Gas/Electric Bills: No Difficulty Paying for Meds: No Currently Unemployed: No Education: Bachelor's Degree Difficulty w/ Childcare or Family Care: No Living arrangements: other Additional living arrangements comments: Occupation/Education: retired Gender identity (if verbalized by the patient): Female Sexual Orientation (if Verbalized by the Patient): Straight or Heterosexual Comments At the time of my signature, I reviewed and agree with the nursing past medical, surgical, social, and family history. There is no relevant family history pertinent to the patient complaint. Exam Narrative: General: Well-developed, well nourished, i
[2023-12-03 09:43] VITALS: BP 133/83; PULSE 117; RESP 20; TEMP 36.9; O2SAT 97
== END 2023-12-03 09:54 | disposition home or self-care (01) ==
PROVIDERS: Emergency Provider Nurse Practitioner Family; Referring Provider Family Medicine
DX: J01.90 Acute sinusitis, unspecified (principal); Z87.891 Personal history of nicotine dependence; F12.90 Cannabis use, unspecified, uncomplicated; M19.90 Unspecified osteoarthritis, unspecified site; M79.7 Fibromyalgia; I10 Essential (primary) hypertension
CPT/HCPCS: 99213; G0463

== ENCOUNTER 2024-01-02 10:20 | Outpatient (CLI) | payer BC, SELFPAY ==
[2024-01-02 10:47] LABS: Basophils Absolute Auto 0.1 K/mm3 (0.0-0.1); Basophils Percent Auto 0.9 % (0.2-1.2); Eosinophils Absolute Auto 0.2 K/mm3 (0-0.3); Eosinophils Percent Auto 2.1 % (0-4.4); Hematocrit 43.3 % (37.0-47.0); Hemoglobin 13.9 g/dL (12.0-15.0); Immature Granulocyte Absolute 0.01 K/mm3 (0.00-0.031); Immature Granulocyte Percent A 0.1 % (0-0.5); Lymphocytes Absolute Auto 2.98 K/mm3 (0.9-3.2); Lymphocytes Percent Auto 42.7 % (18.3-44.2); Mean Corpuscular HGB Conc 32.1 g/dl (32-36); Mean Corpuscular Hemoglobin 27.6 pg (26-34); Mean Corpuscular Volume 85.9 fl (80-100); Mean Platelet Volume 8.7 fl (7.4-10.4); Monocytes Absolute Auto 0.5 K/mm3 (0.1-0.6); Monocytes Percent Auto 7.7 % (2.6-8.5); Neutrophils Absolute Auto 3.2 K/mm3 (1.3-6.7); Neutrophils Percent Auto 46.5 % (45.5-73.1); Platelet Count Result 389 k/mm3 (150-375); Red Blood Count 5.04 M/mm3 (4.2-5.4); Red Cell Distribution Width 13.5 % (11.5-14.5)
[2024-01-02 11:01] LABS: Alanine Aminotransferase 20 U/L (6-35); Albumin Level 4.2 g/dL (3.5-5.1); Alkaline Phosphatase 70 U/L (38-126); Anion Gap 8 mmol/L (4-12); Aspartate Amino Transferase 21 U/L (14-36); Bilirubin,Total 0.6 mg/dL (0.2-1.3); Blood Urea Nitrogen 11 mg/dL (7-17); Calcium 8.7 mg/dL (8.4-10.2); Carbon Dioxide 26 mmol/L (22-30); Chloride 106 mmol/L (98-107); Cholesterol 182 mg/dL (0-200); Estimated Glomerular Filt Rate > 60; Glucose 95 mg/dL (65-110); Potassium 4.1 mmol/L (3.4-5.0); Sodium 140 mmol/L (137-145); Triglycerides 78 mg/dL (<150)
[2024-01-02 11:10] LABS: HDL Direct 86 mg/dL; LDL Cholesterol Direct 75 mg/dL
[2024-01-02 11:17] LABS: Free T4 Free Thyroxine 1.06 ng/mL (0.78-2.19)
[2024-01-02 11:28] LABS: Thyroid Stimulating Hormone 0.992 uIU/mL (0.465-4.680)
== END 2024-01-02 10:21 | disposition home or self-care (01) ==
PROVIDERS: Visit Provider Registered Nurse
DX: I10 Essential (primary) hypertension (principal); E78.5 Hyperlipidemia, unspecified; R53.83 Other fatigue; R73.01 Impaired fasting glucose
CPT/HCPCS: 36415; 80053; 80061; 83036; 84439; 84443; 84480; 85025

== ENCOUNTER 2024-01-03 17:29 | Emergency (ER) | payer BC, SELFPAY ==
--- NOTE | 2024-01-03 17:38 | ED_ITS ---
HPI - Eye Problem General Chief complaint: Eye Problems Stated complaint: RT Eye Redness Time Seen by Provider: 01/03/24 17:38 Source: patient Mode of arrival: ambulatory Limitations: no limitations Related Data Home Medications Medication Instructions Recorded Confirmed amlodipine 5 mg tablet 5 mg PO DAILY 10/10/21 12/03/23 Allergies Allergy/AdvReac Type Severity Reaction Status Date / Time levofloxacin Allergy Unknown Itching Verified 07/16/23 18:31 [facility] Past Medical History Medical History Anxiety Arthritis Fibromyalgia HTN (hypertension) IBS (irritable bowel syndrome) Kidney stones Screening mammogram, encounter for Surgical History Surgical History History of breast biopsy (~2015) axillary mass biopsy--benign History of carpal tunnel surgery of right wrist History of section x2, primary done b/c distress History of colonoscopy History of colposcopy with cervical biopsy (~1991) cervical dysplasia History of cystoscopy History of hand surgery (~02/24/89) trigger finger release History of lithotripsy History of total abdominal hysterectomy and bilateral salpingo-oophorectomy (11/30/00) fibroids History of ureter stent Family History Family History Father Hypertension Family history of malignant neoplasm of kidney Mother Hypertension Other Diabetes mellitus paternal uncle Acute myocardial infarction paternal uncle Grandparent Cerebrovascular accident maternal grandmother Son Scimitar syndrome Heart disease Depression Sibling CLL (chronic lymphocytic leukemia) Other Family history of allergic disorder Family history of cardiovascular disease Family history of coronary artery disease Family history of kidney disease Family history of malignant neoplasm Social History Social History Smoking status: Former smoker Second hand tobacco smoke exposure: Yes Smoking end date: 03/09/16 Alcohol intake: never Substance use: current Substance use type: marijuana Other substance usage details: edibles for stress Lack of Transportation: No Lack of Food: Never True Current Housing: I Have Housing Concerned About Future Housing: No Difficulty Paying Gas/Electric Bills: No Difficulty Paying for Meds: No Currently Unemployed: No Education: Bachelor's Degree Difficulty w/ Childcare or Family Care: No Living arrangements: other Additional living arrangements comments: Occupation/Education: retired Gender identity (if verbalized by the patient): Female Sexual Orientation (if Verbalized by the Patient): Straight or Heterosexual Discharge Plan Discharge Prescriptions: No Action doxycycline monohydrate 100 mg capsule 100 mg PO BID 10 Days Qty: 20 0RF prednisone 20 mg tablet 40 mg PO DAILY 5 Days Qty: 10 0RF estradiol 0.5 mg tablet 0.5 mg PO DAILY Qty: 90 3RF amlodipine 5 mg tablet 5 mg PO DAILY Follow-up/Referrals: Rio Jaeger MD [Primary Care Provider] -
[2024-01-03 17:40] VITALS: BP 134/73; PULSE 88; RESP 18; TEMP 36.3; O2SAT 98
--- NOTE | 2024-01-03 17:40 | ED_ITS ---
HPI - Skin/Abscess/Foreign Bdy General Chief complaint: Skin/Abscess/Foreign Body Stated complaint: RT Eye Redness Time Seen by Provider: 01/03/24 17:38 Source: patient Mode of arrival: ambulatory Limitations: no limitations History of Present Illness HPI narrative: 63-year-old female presents with complaint of itchy skin. Worse to face, neck, both hands. Patient reports history of eczema. Was seen 2 weeks ago at [place] urgent care and given steroid shot and Medrol Dosepak. Patient has clobetasol prescribed by her hand filer balance wheel to apply 2 eczema to hands. Has not been consistently using it. Patient has been told she needs to moisturize her face due to eczema but she is afraid of having allergic reactions to moisturize. Patient reports dry scaly skin above right eye. All systems reviewed and negative except as noted above. Related Data Home Medications Medication Instructions Recorded Confirmed amlodipine 5 mg tablet 5 mg PO DAILY 10/10/21 12/03/23 Allergies Allergy/AdvReac Type Severity Reaction Status Date / Time levofloxacin Allergy Unknown Gastrointestinal Verified 01/03/24 17:43 Upset Review of Systems Review of Systems: CONSTITUTIONAL: Denies fever, chills, or sweats. EYES: Denies visual changes, redness, or discharge. ENT: Denies rhinorrhea, congestion, sore throat, or otalgia. CARDIOVASCULAR: Denies chest pain, palpitations, or edema. RESPIRATORY: Denies cough or dyspnea. GASTROINTESTINAL: Denies abdominal pain, nausea, vomiting, or diarrhea. GENITOURINARY: Denies dysuria or hematuria. SKIN: Reports dry, itchy skin. Scaling to right upper eyelid. MUSCULOSKELETAL: Denies back pain, joint pain, or myalgia. NEUROLOGIC: Denies headache, numbness, or weakness. PSYCHIATRIC: Denies anxiety or depression. All other systems reviewed are negative, except as documented in HPI. [facility] Past Medical History Medical History Anxiety Arthritis Fibromyalgia HTN (hypertension) IBS (irritable bowel syndrome) Kidney stones Screening mammogram, encounter for Surgical History Surgical History History of breast biopsy (~2016) axillary mass biopsy--benign History of carpal tunnel surgery of right wrist History of section x2, primary done b/c distress History of colonoscopy History of colposcopy with cervical biopsy (~1991) cervical dysplasia History of cystoscopy History of hand surgery (~02/24/89) trigger finger release History of lithotripsy History of total abdominal hysterectomy and bilateral salpingo-oophorectomy (11/30/00) fibroids History of ureter stent Family History Family History Father Hypertension Family history of malignant neoplasm of kidney Mother Hypertension Other Diabetes mellitus paternal uncle Acute myocardial infarction paternal uncle Grandparent Cerebrovascular accident maternal grandmother Son Scimitar syndrome Heart disease Depression Sibling CLL (chronic lymphocytic leukemia) Other Family history of allergic disorder Family history of cardiovascular disease Family history of coronary artery disease Family history of kidney disease Family history of malignant neoplasm Social History Social History Smoking status: Former smoker Second hand tobacco smoke exposure: Yes Smoking end date: 03/09/16 Alcohol intake: never Substance use: current Substance use type: marijuana Other substance usage details: edibles for stress Lack of Transportation: No Lack of Food: Never True Current Housing: I Have Housing Concerned About Future Housing: No Difficulty Paying Gas/Electric Bills: No Difficulty Paying for Meds: No Currently Unemployed: No Education: Bachelor's Degree Difficulty w/ Childcare or Family Care: No Living arrangements: other Additional living arrangements comments: Occupation/Education: retired Gender identity (if verbalized by the patient): Female Sexual Orientation (if Verbalized by the Patient): Straight or Heterosexual Comments At time of signature, agree with nursing past medical, surgical, social and family history. There is no relevant family history pertinent to the presenting complaint. Exam Narrative: GENERAL: This is a well-nourished, well-developed patient, in no apparent distress. HEAD: normocephalic, atraumatic. EYES: PERRL. Sclera clear/white. Vision is grossly intact. EARS: External ears normal NOSE: External nose normal NECK: Neck supple, non-tender without lymphadenopathy, masses or thyromegaly. CARDIOVASCULAR: Regular rate and rhythm without murmurs, gallops, or rubs. RESPIRATORY: Clear to auscultation. Breath sounds equal bilaterally. No wheezes, rales, or rhonchi. SKIN: warm, Dry, intact with no suspicious lesions or rash, good texture and turgor. erythematous scaly patches to hands, finger, wrists consistent with eczema. face, neck dry, scalling above R eyelid NEURO: awake, alert, and oriented to person, place and time. There were no obvious focal neurologic abnormalities. EXTREMITIES: No joint tenderness, effusion, or edema noted. Course Course Level of Care: Express Care Visit Vital Signs Vital signs: Reviewed MDM - Skin/Abscess/Foreign Bdy MDM Narrative Medical decision making narrative: recommend Aquaphor of Vaseline applied 2 to 3 times a day. recommend she continue to use clobetasol to hands as prescribed by hand filer balance wheel. Patient is aware of diagnosis, understands and agrees to treatment plan. Anticipatory guidance given. Patient agrees to follow-up as directed and is aware of reasons to seek care at the emergency department. Portions of this record may have been created with voice recognition software Discharge Plan Discharge Clinical Impression: Eczema Patient Disposition: Home, Self-Care Condition: Stable Instructions: Eczema (ED) Additional Instructions: Start prednisone tomorrow with breakfast. Take hydroxyzine as prescribed to treat itching. This medication may make you drowsy. Apply Aquaphor or Vaseline 2 to 3 times a day. Avoid hot showers. Avoid using soaps, lotions with fragrance. Follow-up with hand filer balance wheel if symptoms are not improving. Prescriptions: New prednisone 20 mg tablet See Rx Instructions .ROUTE .COMPLEX Qty: 12 0RF Rx Instructions: Take 3 tablets today, then 2 tablets daily for 3 days then 1 tablet daily for 3 days. hydroxyzine HCl 10 mg tablet 10 mg PO Q6-8H PRN (Reason: itching) Qty: 30 0RF No Action estradiol 0.5 mg tablet 0.5 mg PO DAILY Qty: 90 3RF amlodipine 5 mg tablet 5 mg PO DAILY Follow-up/Referrals: Rio Jaeger MD [Primary Care Provider] - Time of Disposition: 17:55
[2024-01-03 17:44] VITALS: BP 134/73; PULSE 88; RESP 18; TEMP 36.3; O2SAT 98
== END 2024-01-03 18:01 | disposition home or self-care (01) ==
PROVIDERS: Emergency Provider Nurse Practitioner Family; PCP Family Medicine
DX: L30.9 Dermatitis, unspecified (principal); Z87.891 Personal history of nicotine dependence; M19.90 Unspecified osteoarthritis, unspecified site; M79.7 Fibromyalgia; I10 Essential (primary) hypertension
CPT/HCPCS: 99213; G0463

== ENCOUNTER 2024-08-25 09:08 | Outpatient (CLI) | payer BC, SELFPAY ==
--- NOTE | ~2024-08-25 | MM_ITS ---
EXAMINATION: MM screening aggie BI w nickolas HISTORY: Screening TECHNIQUE: Craniocaudal and mediolateral oblique 3-D tomosynthesis images were obtained and synthetic 2-D images were generated. CAD analysis was submitted and interpreted. COMPARISON: Comparison to multiple prior studies sequentially, with oldest reviewed study dated 03/2015. BREAST PARENCHYMAL COMPOSITION: . Not dense: There are scattered areas of fibroglandular density. FINDINGS: There is no evidence of suspicious mass, calcification, or architectural distortion to sugg est malignancy in either breast. There has been no suspicious interval change. IMPRESSION: 1. No mammographic evidence of malignancy. 2. Recommend routine screening mammography in one year. BI-RADS Category 1: Negative Reviewed, dictated and finalized at location A.
--- OUTSIDE RECORDS SUMMARY | 2024-08-25 09:28 | XMS_ITS | Referral Summary ---
Author Organization [facility] Address [address] [place] [address] Care Team Providers Care Cnc Technician Name Role Phone Rio Jaeger MD Primary Care Provider [phone] Allergies Active Allergy Reactions Criticality Noted Date Comments Levofloxacin Diarrhea High Medications estradiol (ESTRACE) 0.5 mg tablet take 1 tablet by oral route every day days 1-21 0 0 11/25/19 15 Active Additional Information Patient not taking.Reported on 10/22/2018 guaiFENesin-p seudoephedrin e (MUCINEX D) 600-60 mg per 12 hr tablet take 1 tablet by oral route every 12 hours as needed 20 0 02/11/20 16 Active loratadine-ps eudoephedrine (CLARITIN-D 24 HOUR) 10-240 mg per 24 hr tablet take 1 tablet by oral route every day 0 0 04/11/19 17 Active Additional Information Patient not taking.Reported on 10/22/2018 cetirizine (ZyrTEC) 10 mg tablet cetirizine 10 mg tablet TK 1 T PO QD Active sertraline (ZOLOFT) 100 mg tablet sertraline 100 mg tablet Active metoprolol XL (TOPROL-XL) 100 mg 24 hr tablet metoprolol succinate ER 100 mg tablet,extended release 24 hr Active senna-docusat e (SENEXON-S) 8.6-50 mg Senexon-S 8.6 mg-50 mg tablet TK 1 T PO BID Active montelukast (SINGULAIR) 10 mg tablet montelukast 10 mg tablet Active ibuprofen (ADVIL,MOTRIN ) 600 mg tablet ibuprofen 600 mg tablet Active hydroCHLOROth iazide (HYDRODIURIL) 25 mg tablet hydrochlorothiazide 25 mg tablet TK 1 T PO QD Active fluticasone propionate (FLONASE) 50 mcg/actuation nasal sprayIndicati ons:Acute non-recurrent ethmoidal sinusitis Administer 2 sprays into each nostril daily 18 mL 10/23/19 19 Active Active Problems No known active problems Social History Tobacco Use Types Packs/Day Years Used Date Smoking Tobacco: Former Smokeless Tobacco: Never Comments:Smoking History Pac ks/day: 1 Packs Alcohol Use Standard Drinks/Week Comments No 0 (1 standard drink = 0.6 oz pur e alcohol) Personal Safety Answer Date Recorded Getting School Help Needed Not on file 05/22 Comments Unknown Sex and Gender Information Value Date Recorded Sex Assigned at Not on file 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 Gender Identity Not on file Sexual Orientation Not on file Last Filed Vital Signs Vital Sign Reading Time Taken Comments Blood Pressure 128/80 10/22/2018 10:59 AM CDT Pulse 95 10/22/2018 10:59 AM CDT Temperature 37.1 C (98.7 F) 10/22/2018 10:59 AM CDT Respiratory Rate 16 10/22/2018 10:59 AM CDT Oxygen Saturation 96% 10/22/2018 10:59 AM CDT Inhaled Oxygen Concentration - - Weight 84.4 kg (186 lb) 10/22/2018 10:59 AM CDT Height 160 cm (5' 2.99) 10/22/2018 10:59 AM CDT Body Mass Index 32.96 10/22/2018 10:59 AM CDT Plan of Treatment Not on file Insurance [facility] Address: [address] [address] [place] [address] [facility] Care Teams Cnc Technician Relationship Specialty Start Date End Date Rio Jaeger MD PCP - General 06/06/16
--- OUTSIDE RECORDS SUMMARY | 2024-08-25 09:28 | XMS_ITS | Clinical Summary ---
Author Organization [facility] Address [address] [place] [address] Care Team Providers Care Mash Grinder Name Role Phone Rio Jaeger MD Primary Care Provider [phone] Allergies Active Allergy Reactions Criticality Noted Date [...] Active Active Problems No known active problems Medical History Medical History Date Comments Anxiety disorder Anxiety Depression Depression Hx Other Medical carpel tunnel r elease; Comments: EMB 11/24/2014 - Family History Medical History Relation Name Comments Cancer Father Cancer Mother Relation Name Status Comments Father Mother Social History Tobacco Use Types Packs/Day Years [...] on file 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
== END 2024-08-25 09:09 | disposition home or self-care (01) ==
LOC: ANHIMG 09:10
PROVIDERS: PCP Family Medicine; Visit Provider Obstetrics & Gynecology
DX: Z12.31 Encounter for screening mammogram for malignant neoplasm of breast (principal)
CPT/HCPCS: 77063; 77067